=== PATIENT | male | born 1950 | race Two or more races ===

== ENCOUNTER 2023-11-22 23:00 | Emergency (ER) | payer BC ==
[~2023-11-22] VITALS: Ht 152.4 cm; Wt 81.6 kg
[2023-11-23 01:40] LABS: HEMATOCRIT 34.4 % (39.0-48.0); HEMOGLOBIN 11.8 g/dL (13-16.00); MEAN CELL VOLUME 90.9 fL (80.0-100.00); MEAN CORPUSCULAR HEMOGLOBIN 31.3 pg (27.00-32.0); MEAN CORPUSCULAR HGB CONC 34.4 g/dl (32.0-36.0); PLATELET COUNT 255 K/uL (150-450); RED BLOOD COUNT 3.79 M/uL (4.00-6.00)
[2023-11-23 01:51] LABS: ALBUMIN 3.6 gm/dL (3.4-5.0); BILIRUBIN TOTAL 0.21 mg/dL (0.3-1.2); CALCIUM 8.4 mg/dL (8.5-10.1); CREATININE SERUM 0.95 mg/dL (0.70-1.30); GFR 77.93; POTASSIUM 3.66 mEq/L (3.5-5.1); TOTAL PROTEIN 6.6 gm/dL (6.4-8.2)
[2023-11-23 01:53] LABS: ABG PH 7.446 (7.35-7.45); ABG PO2 89.1 mmHg (80-100); ABG pCO2 37.6 mmHg (35-45); BASE EXCESS 1.5 mmol/l; BICARBONATE 25.3 mmol/l (23-25); SaO2 97.3 %; Tco2 26.5 mmol/l; allen test SATISFACTORY; o2 28 %; puncture site RADIAL LEFT
[2023-11-23 02:32] LABS: URINE APPEARANCE Clear; URINE BILIRRUBIN Negative (NEGATIVE); URINE BLOOD Negative; URINE COLOR Yellow; URINE GLUCOSE Negative (NEGATIVE); URINE LEUKOCYTE Negative; URINE NITRATE Negative; URINE PROTEIN Trace (NEGATIVE); URINE UROBILINOGEN 0.2 E.U./dl
[2023-11-23 02:35] LABS: URINE EPITHELIAL CELLS 2.6 uL (0.0-38.8); URINE WBC 3.8 uL (0.0-23.2)
[2023-11-23 02:54] LABS: URINE BACTERIA 2.5 uL (0.0-1933)
[2023-11-23] MEDS ORDERED: PAXLOVID 300-11 EAC1 PO (04:13)
[2023-11-23] MEDS ORDERED: ZYNCOF 20-400120 ML PO ×2 (04:13)
== END 2023-11-23 04:33 | disposition home or self-care (01) ==
LOC: ER 23:00
PROVIDERS: General Practice
DX: U07.1 COVID-19 (principal); J44.1 Chronic obstructive pulmonary disease with (acute) exacerbation; E03.9 Hypothyroidism, unspecified; R06.02 Shortness of breath